=== PATIENT | male | born 1995 | race Caucasian/White ===

== ENCOUNTER 2017-01-11 16:49 | Emergency (ER) | payer SELFPAY ==
[~2017-01-11] VITALS: Ht 175.3 cm; Wt 70.0 kg
[2017-01-11] MEDS ORDERED: SODIUM CHLORIDE 0.9% 1,000 ML IV ONE (17:10)
[2017-01-11] MEDS ORDERED: LORAZEPAM 2MG/ML CPJ IV STA (17:10)
[2017-01-11] MEDS ORDERED: ONDANSETRON HCL 4MG/2ML VIAL IV ONE (17:15)
[2017-01-11 17:39] LABS: CHLORIDE 107 mEq/L (98-107); INDEX HEMOLYSI 1 (1-3); INDEX ICTERIC 1 (1-4); INDEX LIPEMIC 1 (1-3); INR 1.1; PROTHROMBIN TIME 11.4 sec
[2017-01-11 17:43] LABS: BASOPHILS % 0.7 % (0.0-2.0); EOSINOPHILS % 0.4 % (0.0-5.0); HEMATOCRIT. 41.9 % (42.0-52.0); HEMOGLOBIN. 14.2 g/dL (14.0-18.0); LYMPHOCYTES % 24.2 % (20.0-50.0); MEAN CORPUSCULAR HEMOGLOBIN 30.5 pg (28.0-32.0); MEAN CORPUSCULAR VOLUME 89.9 fL (80.0-94.0); MONOCYTES % 4.6 % (2.0-8.0); NEUTROPHILS % 70.1 % (40.0-76.0); PLATELET 405 x1000/uL (130-400); RED BLOOD CELL COUNT 4.66 mill/uL (4.7-6.1); WHITE BLOOD COUNT 10.7 x1000/uL (4.5-11.0)
[2017-01-11 17:47] LABS: ACETAMINOPHEN < 2 ug/mL (10-30); ALANINE AMINOTRANSFERASE 23 IU/L (13-61); ALBUMIN 4.3 g/dL (3.4-5.0); ANION GAP 20; CALCIUM 8.4 mg/dL (8.5-10.1); CARBON DIOXIDE 20 mEq/L (21-32); UREA NITROGEN BLOOD 13 mg/dL (7-21); eGFR > 60 mL/min (>60)
[2017-01-11 17:53] LABS: CLARITY URINE CLEAR (CLEAR); COLOR URINE YELLOW (YELLOW); GLUCOSE URINE NEGATIVE (NEGATIVE); KETONES URINE NEGATIVE (NEGATIVE); LEUKOCYTE ESTERASE URINE NEGATIVE (NEGATIVE); NITRITE URINE NEGATIVE (NEGATIVE); OCCULT BLOOD URINE NEGATIVE (NEGATIVE); PH URINE 6.5 (4.5-8.0); PROTEIN URINE NEGATIVE (NEGATIVE); SPECIFIC GRAVITY URINE 1.004 (1.005-1.030); UROBILINOGEN URINE 0.2 E.U./dL (0.2-1.0)
[2017-01-11 18:03] LABS: *AMPHETAMINES SCREEN URINE NEGATIVE (NEGATIVE); *BARBITURATES SCREEN URINE NEGATIVE (NEGATIVE); *BENZODIAZEPINES SCREEN URINE NEGATIVE (NEGATIVE); *COCAINE SCREEN URINE NEGATIVE (NEGATIVE); CANNABINOID URINE SCREEN PRESUMTIVE POSITIVE (NEGATIVE); ECSTASY MDMA SCREEN URINE NEGATIVE (NEGATIVE); METHADONE URINE SCREEN NEGATIVE (NEGATIVE); OPIATES URINE SCREEN NEGATIVE (NEGATIVE); PHENCYCLIDINE URINE SCREEN NEGATIVE (NEGATIVE)
[2017-01-11 18:06] LABS: ETHANOL BLOOD 306 mg/dL
[2017-01-11] MEDS ORDERED: KCL 20MEQ/100ML PREMIX 100 ML IV ONE (18:30)
[2017-01-11 20:00] VITALS: BP 117/64
[2017-01-11] MEDS ORDERED: POTASSIUM CHLORIDE 40MEQ/30ML UDC PO ONE (20:45)
[2017-01-11] MEDS ORDERED: POTASSIUM CHLORIDE 20MEQ TABLET SR PO NR (21:15)
== END 2017-01-11 23:58 | disposition home or self-care (01) ==
LOC: ER 16:50
DX: T51.0X1A Toxic effect of ethanol, accidental (unintentional), initial encounter (principal); E87.6 Hypokalemia; F12.10 Cannabis abuse, uncomplicated; X58.XXXA Exposure to other specified factors, initial encounter; Y93.89 Activity, other specified; Y99.8 Other external cause status; Y92.480 Sidewalk as the place of occurrence of the external cause; Y90.8 Blood alcohol level of 240 mg/100 ml or more
CPT/HCPCS: 36415; 80053; 80305; 80307; 80329; 81003; 82962; 85025; 85610; 96361; 96374; 96375; 99285; G0482; J2060; J2405; J3480; J7030; Z7610

== ENCOUNTER 2022-12-04 19:12 | Emergency (ER) | payer MEDICAID ==
[~2022-12-04] VITALS: Ht 170.2 cm; Wt 58.0 kg
[2022-12-04 19:16] VITALS: BP 146/75
== END 2022-12-04 22:36 | disposition left against medical advice (07) ==
LOC: ER 19:12
DX: R42 Dizziness and giddiness (principal); Z53.21 Procedure and treatment not carried out due to patient leaving prior to being seen by health care provider
CPT/HCPCS: 99281

== ENCOUNTER 2025-02-22 10:26 | Emergency (ER) | payer SELFPAY ==
[~2025-02-22] VITALS: Ht 170.2 cm; Wt 57.0 kg
[2025-02-22 10:31] VITALS: O2SAT 100
[2025-02-22 10:58] LABS: CHLORIDE 101 mEq/L (98-107); POTASSIUM 3.6 mEq/L (3.5-5.1); SODIUM 135 mEq/L (136-145)
[2025-02-22 10:59] LABS: CALCIUM 9.5 mg/dL (8.7-10.4); CARBON DIOXIDE 24 mEq/L (21-32)
[2025-02-22 11:04] LABS: CREATININE 0.9 mg/dL (0.6-1.3); GLUCOSE 105 mg/dL (70-105); UREA NITROGEN BLOOD 16 mg/dL (9-23)
[2025-02-22 11:06] LABS: ALANINE AMINOTRANSFERASE 18 IU/L (10-49); ASPARTATE AMINOTRANSFERASE 22 IU/L (<34); BILIRUBIN DIRECT 0.6 mg/dL (<=3.0); BILIRUBIN TOTAL 2.1 mg/dL (0.1-1.0)
[2025-02-22 11:07] LABS: PROTEIN TOTAL 7.7 g/dL (6.0-8.3)
[2025-02-22] MEDS: ONDANSETRON HCL 4MG/2ML INJ IV STA (11:11)
[2025-02-22] MEDS: SODIUM CHLORIDE 0.9% 1,000 ML IV ONE (11:11)
[2025-02-22] MEDS: KETOROLAC 15MG/ML VIAL IV ONE (11:11)
[2025-02-22 11:16] LABS: BASOPHILS % 0.3 % (0.0-2.0); EOSINOPHILS % 0.1 % (0.0-5.0); HEMATOCRIT. 45.5 % (42.0-52.0); HEMOGLOBIN. 15.8 g/dL (14.0-18.0); LYMPHOCYTES % 22.4 % (20.0-50.0); MEAN CORPUSCULAR HEMOGLOBIN 31.6 pg (28.0-32.0); MEAN CORPUSCULAR HGB CONC 34.7 g/dL (31.0-37.0); MEAN PLATELET VOLUME 7.3 fl (7.4-10.4); MONOCYTES % 9.1 % (2.0-8.0); NEUTROPHILS % 68.1 % (40.0-76.0); PLATELET 362 x1000/uL (130-400); RED BLOOD CELL COUNT 4.99 mill/uL (4.7-6.1); RED CELL DISTRIBUTION WIDTH 13.1 % (11.6-14.6); WHITE BLOOD COUNT 4.5 x1000/uL (4.5-11.0)
[2025-02-22 11:26] LABS: CLARITY URINE CLEAR (CLEAR); COLOR URINE YELLOW (YELLOW); GLUCOSE URINE NEGATIVE (NEGATIVE); KETONES URINE 2+ (NEGATIVE); LEUKOCYTE ESTERASE URINE NEGATIVE (NEGATIVE); NITRITE URINE NEGATIVE (NEGATIVE); OCCULT BLOOD URINE NEGATIVE (NEGATIVE); PH URINE 6.5 (4.5-8.0); PROTEIN URINE TRACE (NEGATIVE); SPECIFIC GRAVITY URINE 1.025 (1.005-1.030)
[2025-02-22 11:56] LABS: MUCUS URINE 1+ /lpf (NONE/TRACE); SQUAMOUS EPITHELIAL CELL URINE FEW /lpf (RARE/1+)
[2025-02-22 11:57] LABS: BACTERIA URINE TRACE
[2025-02-22 11:58] LABS: WBC URINE 0-2 /hpf (0-2)
[2025-02-22] MEDS ORDERED: IBUP-2029 MT (13:09)
[2025-02-22] MEDS ORDERED: ONDA4TAB50 MT (13:09)
[2025-02-22] MEDS: METOCLOPRAMIDE HCL 10MG TABLET PO ONE (13:15)
[2025-02-22] MEDS: DICYCLOMINE HCL 10MG CAPSULE PO ONE (13:15)
[2025-02-22 13:21] VITALS: BP 124/77; PULSE 71; RESP 18; TEMP 36.7; O2SAT 100
== END 2025-02-22 13:22 | disposition home or self-care (01) ==
LOC: ER 10:52
DX: F12.90 Cannabis use, unspecified, uncomplicated (principal); Z79.899 Other long term (current) drug therapy
CPT/HCPCS: 99285; 74176; 96374; 96361; 96375; 80076; 80048; 81003; 83690; 85025; 36415; J1885; J8597; J2405; J7030